=== PATIENT | female | born 1990 | race Caucasian/White ===

== ENCOUNTER 2020-02-09 20:39 | Emergency (ER) | payer MEDICAID ==
[2020-02-09 20:47] VITALS: BP 127/86
[2020-02-09] MEDS ORDERED: LIDOCAINE 1% INJ-PF (10 MG/ML) 30 ML SDV INJ ONE (21:50)
[2020-02-09] MEDS ORDERED: DIPH/PERTUSS(ACELL)/TETANUS VAC/PF 0.5 ML SYR (>=10YO) IM ONE (21:51)
--- NOTE | 2020-02-09 22:40 | ER Document Report ---
ED Wound - General Chief Complaint: Laceration Stated Complaint: LEFT FINGER LACERATION Time Seen by Provider: 02/09/20 21:50 Information source: Patient Notes: Patient is a 29-year-old female comes emergency room complaining of laceration to her left index finger. Patient states she was cutting vegetables today and she slipped and cut the medial aspect of her left thumb. Patient states that she attempted to keep it pressure applied however it continues to bleed. Her mother's boyfriend is a nurse so he told her she needed to come to ER to get stitches. Patient denies any other medical problems. She does need a tetanus shot. - HPI Patient complains to provider of: Laceration Occurred: This afternoon Onset/Duration: Sudden Quality of pain: Achy Pain Level: 2 Context: Injury Skin Temperature: Warm Skin Color: Normal Capillary refill: < 3 seconds Sensations intact: Yes Distal pulses present: Yes Associated Symptoms: Bleeding - Related Data Allergies/Adverse Reactions: No Known Allergies Allergy (Unverified 02/09/20 21:43) Past Medical History - General Information source: Patient - Social History Smoking Status: Never Smoker Frequency of alcohol use: None Drug Abuse: None Family History: Reviewed & Not Pertinent Patient has homicidal ideation: No Psychiatric Medical History: Reports: Hx Depression Review of Systems - Review of Systems Constitutional: No symptoms reported EENT: No symptoms reported Cardiovascular: No symptoms reported Respiratory: No symptoms reported Gastrointestinal: No symptoms reported Genitourinary: No symptoms reported Female Genitourinary: No symptoms reported Musculoskeletal: No symptoms reported Skin: See HPI, Other - Laceration Hematologic/Lymphatic: No symptoms reported Neurological/Psychological: No symptoms reported -: Yes All other systems reviewed and negative Physical Exam - Vital signs Vitals: Temp Pulse Resp BP Pulse Ox 98.1 F 82 14 127/86 H 98 02/09/20 20:45 02/09/20 20:45 02/09/20 20:45 02/09/20 20:45 02/09/20 20:45 Interpretation: Hypertensive - Notes Notes: PHYSICAL EXAMINATION: GENERAL: Well-appearing, well-nourished and in no acute distress. HEAD: Atraumatic, normocephalic. LUNGS: Breath sounds clear to auscultation bilaterally and equal. No wheezes rales or rhonchi. HEART: Regular rate and rhythm without murmurs Musculoskeletal: Normal range of motion, no pitting or edema. No cyanosis. NEUROLOGICAL: Normal speech, normal gait. Normal sensory, motor exams PSYCH: Normal mood, normal affect. SKIN: Examination patient's area concern is her left thumb. Primarily the medial aspect of the left thumb. Patient has approximately a 1 cm laceration that is right in the medial nailbed area. There is no nail involvement it is just in the fatty part of the thumb. Patient has full flexion-extension of the thumb she has good cap refill in nailbeds of the thumb it is just barely into the vascular bed but will not quit bleeding. Course - Re-evaluation Re-evalutation: 02/09/20 22:57 Patient did well with the suturing we placed 2 sutures to get closure. We will place her on some Keflex for couple of days. - Vital Signs Vital signs: Temp Pulse Resp BP Pulse Ox 98.1 F 82 14 127/86 H 98 02/09/20 21:45 02/09/20 20:45 02/09/20 20:45 02/09/20 20:45 02/09/20 20:45 Procedures - Laceration/Wound Repair Left Thumb Time completed: 22:57 Wound length (cm): 1 Wound's Depth, Shape: Superficial, Linear. No: Nail-avulsed, Contused tissue Laceration pre-procedure: Sterile PPE donned, Betadine prep applied Anesthetic type: 1% Lidocaine Volume Anesthetic (mLs): 1 Wound explored: Clean Irrigated w/ Saline (mLs): 250 Wound Debrided: Minimal Wound Repaired With: Sutures Suture Size/Type: 5:0, Nylon Number of Sutures: 2 Post-procedure wound care: Sterile dressing applied Post-procedure NV exam normal: Yes Complications: No Discharge - Discharge Clinical Impression: Thumb laceration Qualifiers: Encounter type: initial encounter Damage to nail status: unspecified Foreign body presence: without foreign body Laterality: left Qualified Code(s): S61.012A - Laceration without foreign body of left thumb without damage to nail, initial encounter Condition: Stable Disposition: HOME, SELF-CARE Instructions: Antibiotic Ointment Protection ([facility]), Laceration Care ([facility]), Prophylactic Antibiotic ([facility]) Additional Instructions: Home and rest. Medications prescribed. Keep the areas clean and dry as possible for 48 hours then you can advance as tolerated. Return to ER in approximately 7 to 8 days for suture removal. Also note that if you should have any concerns that is not healing appropriately return to ER sooner for reevaluation. Prescriptions: Cephalexin Monohydrate [Keflex 500 mg Capsule] 500 mg PO Q6H 7 Days #27 capsule Referrals: [facility] [Provider Group] - Follow up as needed
== END 2020-02-09 23:10 | disposition home or self-care (01) ==
LOC: ER 20:39
DX: S61.012A Laceration without foreign body of left thumb without damage to nail, initial encounter (principal); W26.9XXA Contact with unspecified sharp object(s), initial encounter; Y93.G9 Activity, other involving cooking and grilling; Z23 Encounter for immunization
CPT/HCPCS: 99282; 90471; 90715; 12001; J3490